=== PATIENT | male | born 1960 | race Caucasian/White ===

== ENCOUNTER 2022-03-19 08:04 | Day surgery (SDC) | payer OTHER ==
[~2022-03-19] VITALS: Ht 167.6 cm; Wt 93.0 kg
[~2022-03-19 08:04] MED LIST: CEPH500 PO; HYDACE5 PO; RXCEPH500 PO; RXSULTRIDS PO; SULTRIDS PO
--- NOTE | 2022-03-19 09:07 | NUR ---
Ambulatory in Day Surgery. History, Chart, Medications and Allergies reviewed before start of procedure. Lungs clear T/O to Auscultation. Patient States Post-Procedure ride home has been arranged WITH R[facility].
--- NOTE | 2022-03-19 19:20 | NUR ---
SHIFT SUMMARY PT HAS DONE WELL POST OP. SPINAL WORE OFF AROUND 1830 & WAS ABLE TO GET UP TO AMBULATE IN ROOM. DENIES PAIN AT THIS TIME. HAS NOT VOIDED YET BUT HASN'T CRISTINA MUCH PO INTAKE.
[2022-03-20 05:00] LABS: BASOPHILS ABSOLUTE AUTO 0.01 K/mm3 (0.00-0.23); BASOPHILS PERCENT AUTO 0 % (0-2); EOSINOPHILS ABSOLUTE AUTO 0.01 K/mm3 (0.00-0.68); EOSINOPHILS PERCENT AUTO 0 % (0-6); Hematocrit 39.6 % (37.0-53.0); Hemoglobin 13.2 g/dL (13.5-17.5); IMMATURE GRAN ABSOLUTE AUTO 0.06 K/mm3 (0.00-0.10); IMMATURE GRAN PERCENT AUTO 1 % (0-1); LYMPHOCYTES ABSOLUTE AUTO 1.27 K/mm3 (0.84-5.20); LYMPHOCYTES PERCENT AUTO 10 % (21-46); MONOCYTES ABSOLUTE AUTO 0.96 K/mm3 (0.16-1.47); MONOCYTES PERCENT AUTO 8 % (4-13); Mean Corpuscular HGB 31.4 pg (26.0-34.0); Mean Corpuscular HGB Conc 33.3 g/dL (31.5-36.5); Mean Corpuscular Volume 94 fL (80-100); NEUTROPHILS ABSOLUTE AUTO 10.06 K/mm3 (1.96-9.15); NEUTROPHILS PERCENT AUTO 81 % (41-73); Platelet Count 239 K/mm3 (150-400); RDW Coefficient Variation 13.6 % (11.7-14.2); RDW Standard Deviation 47.1 fL (35.1-46.3); White Blood Cell Count 12.37 K/mm3 (4.00-11.30)
[2022-03-20 05:22] LABS: Bun/Creatinine Ratio 13.1 (12.0-20.0); Calcium, Blood 7.7 mg/dL (8.5-10.1); Creatinine, Blood 1.3 mg/dL (0.60-1.20); Magnesium, Blood 2.1 mg/dL (1.6-2.4); Potassium, Blood 4.3 mmol/L (3.5-5.5)
--- NOTE | 2022-03-20 05:23 | NUR ---
SHIFT SUMMARY POD1 R TKA. AOX4, AQUACEL TO R KNEE, CDI, POLAR PACK TO KNEE. DENIES N/T, MINIMAL PAIN STRETCHING AND EXTENSION, PAIN MANAGED WITH TORADOL, TYLENAL 5MG OXY. TOLERATING PO, DENIES N/V. VOIDING WELL, AMBULATING WITH 1 SBA GB,FWW. SALINE LOCKED. WEIGHT BEARING BRITTANIE. VSS, CALL LIGHT IN REACH. REPORT TO ONCOMING RN.
[2022-03-20] MEDS ORDERED: ACET500 PO (09:31)
[2022-03-20] MEDS ORDERED: OXYC5 PO (09:32)
[2022-03-20] MEDS ORDERED: ASPI81CH PO (09:32)
--- NOTE | 2022-03-20 10:20 | NUR ---
DISCHARGE CLEARED THERAPY. EATING, DRINKING, & VOIDING EASILY. AQUACEL WNL. PAIN WELL CONTROLLED, BUT WANTED TO TAKE A PAIN PILL PRIOR TO DC IN ANTICIPATION OF PAIN INCREASING. PLEASAND & COOPERATIVE. DR FELIPE HANDOUT, ROSALEE, & PAULIE PACK SENT w/ PT. ESCORTED OUT VIA WC.
--- NOTE | 2022-03-20 15:59 | NUR ---
03/20/22 1559 Traci Lutz VERIFICATIONS: EDIT CHART.
== END 2022-03-20 10:25 | disposition home or self-care (01) ==
LOC: ORSCMMR 08:04 → ORD 10:00 → SURS 14:07 → ORSCMMR 03-20 10:25
PROVIDERS: Orthopaedic Surgery
PROC: 8E0Y0CZ Robotic Assisted Procedure of Lower Extremity, Open Approach (ICD-10-PCS; principal; 2022-03-19 10:00)
PROC: 0SRC0JA Replacement of Right Knee Joint with Synthetic Substitute, Uncemented, Open Approach (ICD-10-PCS; principal; 2022-03-19 10:00)
DX: M17.0 Bilateral primary osteoarthritis of knee (principal)
CPT/HCPCS: 27447; 0055T; S2900; 36415; 73560-RT; 80048; 83735; 85025; 97110; 97116; 97162; A9270; C1776; J0171; J0690; J0735; J1100; J1885; J2250; J2405; J2704; J2795; J3010; J7120

== ENCOUNTER 2022-07-16 07:45 | Day surgery (SDC) | payer OTHER ==
[~2022-07-16] VITALS: Ht 167.6 cm; Wt 92.9 kg
[~2022-07-16 07:45] MED LIST changes: +ACET500 PO; +ASPI81CH PO; +OXYC5 PO
--- NOTE | 2022-07-16 18:16 | NUR ---
SHIFT SUMMARY POD0 L TKA, PATIENT HAD SPINAL BLOCK HAS BEEN ABLE TO GET UP AND WORK WITH THERAPY. DENIES N/T. TRANSFERS 1SBA GB, FWW. L LEG IS WBAT. TOLERATES PO INTAKE, VOIDING EASILY. DENIES PAIN BUT MEDICATED PER EMAR WITH TYLENOL AND TORADOL. X1 NORCO TO HELP TOLERATE THERAPY. PATIENT IS NOW SITTING IN RECLINER EATING DINNER. VSS. CALL LIGHT IN REACH. WILL REPORT TO NIGHT NURSE.
--- NOTE | 2022-07-17 05:23 | NUR ---
SHIFT SUMMARY PT A&OX4, PLEASANT AND COOPERATIVE WITH CARE. PT DID NOT NEED PAIN COVERAGE OUTSIDE OF SCHEDULED MEDICATIONS. SBA WITH FWW/GB. TOLERATING PO INTAKE, VOIDING WELL. DRESSING TO L KNEE C/D/I. CALLS APPROPRIATELY, CALL LIGHT WITHIN REACH.
[2022-07-17 05:56] LABS: BASOPHILS ABSOLUTE AUTO 0.02 K/mm3 (0.00-0.23); BASOPHILS PERCENT AUTO 0 % (0-2); EOSINOPHILS ABSOLUTE AUTO 0.05 K/mm3 (0.00-0.68); EOSINOPHILS PERCENT AUTO 0 % (0-6); Hematocrit 38.1 % (37.0-53.0); Hemoglobin 12.8 g/dL (13.5-17.5); IMMATURE GRAN ABSOLUTE AUTO 0.07 K/mm3 (0.00-0.10); IMMATURE GRAN PERCENT AUTO 1 % (0-1); LYMPHOCYTES ABSOLUTE AUTO 1.83 K/mm3 (0.84-5.20); LYMPHOCYTES PERCENT AUTO 13 % (21-46); MONOCYTES ABSOLUTE AUTO 1.35 K/mm3 (0.16-1.47); MONOCYTES PERCENT AUTO 9 % (4-13); Mean Corpuscular HGB 30.2 pg (26.0-34.0); Mean Corpuscular HGB Conc 33.6 g/dL (31.5-36.5); Mean Corpuscular Volume 90 fL (80-100); Mean Platelet Volume 10.4 fL (9.1-12.4); NEUTROPHILS PERCENT AUTO 77 % (41-73); Platelet Count 263 K/mm3 (150-400); RDW Coefficient Variation 14.5 % (11.7-14.2); RDW Standard Deviation 46.4 fL (35.1-46.3); Red Blood Cell Count 4.24 M/mm3 (4.30-5.90); White Blood Cell Count 14.32 K/mm3 (4.00-11.30)
[2022-07-17 06:33] LABS: Bun/Creatinine Ratio 31.9 (12.0-20.0); Creatinine, Blood 0.94 mg/dL (0.60-1.20); Potassium, Blood 4.3 mmol/L (3.5-5.5)
[2022-07-17] MEDS ORDERED: ACET500 PO (09:30)
[2022-07-17] MEDS ORDERED: ASPI81CH PO (09:31)
[2022-07-17] MEDS ORDERED: HYDR1TAB94 PO (09:32)
--- NOTE | 2022-07-17 10:58 | NUR ---
DISCHARGE EATING, DRINKING, TOLERATING PAIN MEDICATIONS. PASSED THERAPY GOALS FOR DISCHARGE. IV TAKEN OUT WITH NO COMPLICATIONS. IN ROOM FOR DISCHARGE INSTRUCTIONS AND PATIENT SIGNS UNDERSTANDING. PATIENT WHEELED OUT TO AWAITING CAR BY HEALTH POLICY NURSE.
== END 2022-07-17 11:16 | disposition home or self-care (01) ==
LOC: ORSCMMR 07:45 → ORD 10:45 → SURS 13:51 → ORSCMMR 07-17 11:16
PROVIDERS: Orthopaedic Surgery
PROC: 0SRD0JA Replacement of Left Knee Joint with Synthetic Substitute, Uncemented, Open Approach (ICD-10-PCS; principal; 2022-07-16 10:30)
PROC: 8E0Y0CZ Robotic Assisted Procedure of Lower Extremity, Open Approach (ICD-10-PCS; principal; 2022-07-16 10:30)
DX: M17.12 Unilateral primary osteoarthritis, left knee (principal); E66.9 Obesity, unspecified; Z68.33 Body mass index [BMI] 33.0-33.9, adult
CPT/HCPCS: 27447; 20985; S2900; 36415; 73560-LT; 80048; 83735; 85025; 97110; 97116; 97162; A9270; C1776; J0171; J0690; J0735; J1100; J1885; J2250; J2405; J2704; J2795; J3010; J7120